=== PATIENT | male | born 1960 | race African-American/Black ===

== ENCOUNTER 2019-04-13 22:10 | Emergency (ER) | payer OTHER ==
[~2019-04-13] VITALS: Ht 165.1 cm; Wt 76.2 kg
[~2019-04-13 22:10] MED LIST: ADULT LOW DOSE81 MG PO; CARAFATE 1 GM TA1 G1 PO; CEFTIN500 MG PO; MEDROL DOSPAK21 TA1 PO; NORCO 5-325 TA1 EACH PO; NORCO 7.5-3251 EACH PO; OMEPRAZOLE PO; PRILOSEC40 MG PO; PROTONIX40 M2 PO; PROTONIX40 MG PO; ZANTAC 150MG T150 MG PO
[2019-04-13 22:33] VITALS: BP 159/84
[2019-04-13 23:05] LABS: URINE BILIRUBIN NEGATIVE (Negative); URINE BLOOD 3+ (Negative); URINE CLARITY CLOUDY; URINE COLOR RED; URINE GLUCOSE-RANDOM* NEGATIVE (Negative); URINE KETONES NEGATIVE (Negative); URINE LEUKOCYTES-REFLEX TRACE (Negative); URINE NITRITE-REFLEX NEGATIVE (Negative); URINE PROTEIN (DIPSTICK) 3+ (Negative); URINE SPECIFIC GRAVITY 1.025 (1.005-1.035); URINE UROBILINOGEN 0.2 E.U./dl (0.2-1.0)
[2019-04-13 23:26] LABS: SQUAMOUS 0-3 Few /LPF (0-3); URINE RBC >20 Many /HPF (0-2); URINE WBC-REFLEX 0-5 Rare /HPF (0-5)
[2019-04-13 23:27] LABS: BACTERIA-REFLEX None Seen /HPF (None Seen); CASTS None Seen /LPF (None Seen); CRYSTALS None Seen /LPF (None Seen)
== END 2019-04-14 01:40 | disposition home or self-care (01) ==
LOC: ER 22:10
PROVIDERS: Physician Assistant
DX: R31.0 Gross hematuria (principal); F17.210 Nicotine dependence, cigarettes, uncomplicated; Z86.73 Personal history of transient ischemic attack (TIA), and cerebral infarction without residual deficits

== ENCOUNTER 2019-06-14 13:24 | Inpatient (IN) | payer OTHER ==
[~2019-06-14] VITALS: Ht 165.1 cm; Wt 80.2 kg
--- NOTE | ~2019-06-14 | HC ---
[facility] [address] [place] [address] CONSULTATION Name: MIHAELA MORELAND JR Room #: 216-P ADM IN M.R.#: [id number] Admission: 06/14/19 Attend Phys: Sylvester Arevalo MD Discharge: Date of : 60 Report #: [id number] THIS REPORT FOR: cc: Leo Gill,Dung Gilman MD ~ CC: Sylvester Gill DATE OF SERVICE: 06/15/2019 HISTORY OF PRESENT ILLNESS: The patient is a 59-year-old -Tog[place] male who was admitted on 06/14/2019 with left-sided weakness, abnormal gait, slurred speech for 1 day. He has a prior history of remote TIA. He underwent an MRI scan, which showed an acute subacute right pontine infarct. He notes he has left-sided weakness, thinks it may be somewhat better although he does have some premorbid arthritis, which affects his movement of that hand. Denies any specific visual complaints. No focal numbness or tingling. We are seeing him in Rehabilitation Medicine consultation. PAST MEDICAL HISTORY: Includes a prior history of TIA. He has a history of prostate cancer with some urinary incontinence and he notes that there has been some metastasis to the bone. MEDICATIONS: Please see the full medication listing. ALLERGIES: SHELLFISH AND IODINE. SOCIAL HISTORY: Lives in a house with his fiancee. He stays on one floor, on the ground floor. 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 He did not utilize gait aids premorbidly. REVIEW OF SYSTEMS: No focal complaints of chest pain, shortness of breath or abdominal discomfort. PHYSICAL EXAMINATION: GENERAL: He is a pleasant, 59-year-old -[place]og[place] male, in no obvious distress. VITAL SIGNS: Last recorded temperature 97.9, pulse 73, respirations 18, blood pressure 174/82. NEUROLOGIC: The patient is alert. Follows basic commands. He is pleasant, oriented. Appears to be a good historian. Facies appeared symmetric. No visual field neglect to confrontation. He moves both upper and lower extremities. Appears to have some mild decreased coordination of the left upper extremity compared to the right. [id number]-[id number] is slightly decreased. Left lower extremity strength maybe slightly decreased compared to the right. [address] [address] CONSULTATION Name: MIHAELA MORELAND Room #: 216-P [facility] IN M.R.#: [id number] Admission: 06/14/19 Attend Phys: Sylvester Arevalo MD Discharge: Date of : 60 Report #: [id number] were intact sensation. No obvious decreased sensation to simultaneous stimulation both upper and lower extremities as well as the left face. ASSESSMENT: A 59-year-old -Tog[place] male with the following problem list: 1. Acute subacute right pontine infarct. 2. Left-sided weakness with noted abnormal gait and slurred speech. 3. Functional mobility and activities of daily living deficits, which are being further assessed. 4. Prior history of prostate cancer with urinary incontinence and apparent bony metastases per history. PLAN: We will need to see how he does in therapies. If he has the functional deficits, he may warrant a short acute in-hospital inpatient rehabilitation stay. At this point, we will need to follow along with you. He maybe too high level as well as he has had. Thank you for asking us to assist in this patient's care. By: [id number] Dung Morgan MD /PMT
--- NOTE | ~2019-06-14 | HC ---
[facility] [address] [place] [address] CONSULTATION Name: MIHAELA MORELAND JR Room #: 216-P ADM IN M.R.#: [id number] Admission: 06/14/19 Attend Phys: Sylvester Arevalo MD Discharge: Date of : 60 Report #: [id number] THIS REPORT FOR: cc: Leo Gill,Roberth Morris MD ~ CC: Sylvester Gill DATE OF SERVICE: 06/15/2019 HISTORY OF PRESENT ILLNESS: This is a 59-year-old male patient who noticed weakness a couple of days ago. The exact duration is not clear. He indicated that the weakness is stable, improved to some extent, but he is still weak on the left side. It came spontaneously without any trauma. He does not know any aggravating or relieving factors for that. REVIEW OF SYSTEMS: He indicates he had a TIA several years ago. He was in [facility]. I do not have any records from there. I do not know what workup was done and that was found. The patient is on aspirin, but the patient also continues to smoke. He denies the use of any drugs. He does have some heart issues. His biggest medical problem is metastatic prostatic carcinoma since 2016. A 14-point review of system was carried out. It was mostly unremarkable. He denies any history of any visual, ENT, cardiac, respiratory, GI, , musculoskeletal, constitutional, dermatological, hematological, psychiatric, throat or allergic symptom associated with present symptomatology. PAST MEDICAL HISTORY: Positive for TIA. FAMILY HISTORY: Positive for vascular disease. SOCIAL HISTORY: He continues to smoke, but indicates that he does not drink any alcohol. PHYSICAL EXAMINATION: Indicates he is alert, responsive, able to follow simple and complex command. Cranial nerve examination 2-12 looks intact. His speech, concentration, fund of knowledge and memory is also intact. He does appear to be weak on the left side. He can still move his extremities. He is weak on the left side. He does not do tczrbg-ne-bmft very well on the left side. He does have a position sense on both sides. His tone is symmetrical. His reflexes are difficult to elicit because he does not relax. I could not look at the patient's fundus. CARDIAC: Appear unremarkable. LUNGS: No respiratory difficulty was noticed. VITAL SIGNS: His blood pressure is 157/89, respirations 18, pulse is 58, temperature is 98.6. [facility] [address] [place] [address] CONSULTATION Name: MIHAELA MORELAND Room #: [facility] [address]#: [id number] Admission: 06/14/19 Attend Phys: Sylvester Arevalo MD Discharge: Date of : 60 Report #: [id number] LABORATORY DATA: His white count is low at 3.3. His imaging studies were reviewed and his CT and a carotid Doppler looks unremarkable. IMPRESSION: The finding is consistent with most likely a subcortical CVA. His MRI is scheduled and we will see what it shows. He is already on aspirin. If MRI demonstrates stroke, I will put him on a combination of aspirin and Plavix. He needs some further workup and I did order an echocardiogram and the further workup for the patient's stroke. The workup does include lipid profile. He really needs to stop smoking and I discussed that with the patient. He also needs to take other measures to decrease his chances of having a stroke in futures and that was also discussed with the patient. His white count is low, but that is probably his baseline. Thank you very much for this referral and if you have any question, please feel free to contact me. By: [phone] Roberth Rivas MD /nt
[2019-06-14] MEDS ORDERED: OXYCODONE HCL10 MG PO (14:04)
[2019-06-14] MEDS ORDERED: DULOXETINE HCL60 MG PO (14:05)
[2019-06-14] MEDS ORDERED: NEURONTIN 300300 M1 PO (14:05)
[2019-06-14 14:06] LABS: HEMATOCRIT 37.3 % (42.0-52.0); HEMOGLOBIN 11.9 gm/dL (14.0-18.0); MCHC 31.9 g/dL (28.0-37.0); MCV 87.9 fL (80.0-100.0); PLATELET COUNT 214 thou/uL (150-400); RBC 4.24 mil/uL (4.50-6.00); RDW 15.2 % (10.5-14.5); WBC 2.7 thou/uL (4.0-11.0)
[2019-06-14] MEDS ORDERED: ATORVASTATIN CA80 MG PO (14:06)
[2019-06-14 14:10] LABS: ANION GAP 7 mmol/L (7-16); BUN 15 mg/dL (7-18); CALCIUM 9.3 mg/dL (8.5-10.1); CHLORIDE 104 mmol/L (98-107); CO2 29 mmol/L (21-32); CREATININE 1.1 mg/dL (0.7-1.3); GLUCOSE 144 mg/dL (74-106); POTASSIUM 3.7 mmol/L (3.5-5.1); SODIUM 140 mmol/L (136-145)
[2019-06-14 14:16] LABS: ALBUMIN 3.8 g/dL (3.4-5.0); APTT 27.3 Seconds (24.5-32.8); DIRECT BILIRUBIN < 0.1 mg/dL (<0.1-0.2); PROTIME 10.6 Seconds (9.3-11.4); SGOT 37 U/L (15-37); SGPT 47 U/L (30-65); TOTAL BILIRUBIN 0.4 mg/dL (<0.1-1.0); TOTAL PROTEIN 7.2 g/dL (6.4-8.2)
[2019-06-14 14:30] LABS: ABSOLUTE NEUTROPHILS 1.4 thou/uL (1.4-8.2); ANISOCYTOSIS 1+; OVALOCYTES FEW
[2019-06-14 15:03] LABS: URINE BILIRUBIN NEGATIVE (Negative); URINE BLOOD NEGATIVE (Negative); URINE CLARITY CLEAR; URINE COLOR YELLOW; URINE GLUCOSE-RANDOM* NEGATIVE (Negative); URINE KETONES NEGATIVE (Negative); URINE LEUKOCYTES-REFLEX NEGATIVE (Negative); URINE NITRITE-REFLEX NEGATIVE (Negative); URINE PROTEIN (DIPSTICK) NEGATIVE (Negative); URINE UROBILINOGEN 0.2 E.U./dl (0.2-1.0)
[2019-06-14 16:13] VITALS: BP 176/93
[2019-06-14 17:00] VITALS: BP 189/91
--- NOTE | 2019-06-14 17:47 | NUR ---
ASSUMED CARE OF PT AT APPROX 1515 FROM ER D/T STROKE-LIKE SYMPTOMS, LEFT SIDED WEAKNESS. PT A&OX4. X1 ASSIST WITH GAIT BELT. ON RA. ADMISSION ORDER AND INSTRUCTIONS COMPLETE. MRI SCREEN TOOL COMPLETE AND CONSENTS SIGNED. WILL CONTINUE TO MONITOR AND FOLLOW POC.
[2019-06-14 19:35] VITALS: BP 150/84
[2019-06-15 00:11] VITALS: BP 168/89
[2019-06-15 03:18] VITALS: BP 157/89
--- NOTE | 2019-06-15 04:09 | NUR ---
NO OVERNOGHT EVENTS. PT. DENIES PAIN. NIH SCORE 0-1. SLEPT WELL THROUGH MOST OF SHIFT. ASSESSMENTS AND VITAL SIGNS CHARTED. NEURO TO SEE PATIENT THIS MORNING AND GET MRI OF HEAD DONE TO DETERMINE MORE OF THE POC. WILL CONTINUE TO MONITOR.
[2019-06-15 04:27] LABS: CALCIUM 8.8 mg/dL (8.5-10.1); CREATININE 0.9 mg/dL (0.7-1.3); POTASSIUM 3.9 mmol/L (3.5-5.1)
[2019-06-15 04:28] LABS: HEMOGLOBIN 10.9 gm/dL (14.0-18.0); MCH 28.1 pg (26.0-34.0); RBC 3.86 mil/uL (4.50-6.00); RDW 14.8 % (10.5-14.5); WBC 3.3 thou/uL (4.0-11.0)
[2019-06-15 07:30] VITALS: BP 171/95
[2019-06-15 08:33] LABS: CHOLESTEROL 133 mg/dL (<200); HDL CHOLESTEROL 47 mg/dL (>40); LDL CHOLESTEROL 72 mg/dL (<100); TC:HDL 2.8 Ratio (Not establshd); TRIGLYCERIDE 74 mg/dL (<150); VLDL 15 mg/dL (<40)
[2019-06-15 08:57] LABS: TSH 0.616 uIU/mL (0.358-3.740)
--- NOTE | 2019-06-15 08:58 | EKG ---
[facility] [place] [address] ELECTROCARDIOGRAM REPORT Name: MIHAELA MORELAND Room #: 216-P ADM IN M.R.#: [id number] Admission: 06/14/19 Attend Phys: Sylvester Arevalo MD Discharge: Date of : 60 Report #: [id number] THIS REPORT FOR: cc: Leo Gill James A. DO Couchonnal, Luis F. MD ~ THIS REPORT FOR: //name// [facility] ED Test Date: 2019-06-14 Test Time: 13:41:05 Pat Name: MIHAELA MORELAND Department: Room: 216 Gender: M Consulting Practice Manager: ISABELLA : 1960 Requested By: Kayleen Graves Order Number: [id number] MD: Reuben Watson Measurements Intervals Gays Rate: 60 P: 8 HI: 186 QRS: -17 QRSD: 83 T: 28 QT: 400 QTc: 400 Interpretive Statements Sinus rhythm Borderline left axis deviation No previous ECG available for comparison Electronically Signed On 06-15-2019 8:56:58 CDT by Reuben Watson [email or web address] <ELECTRONICALLY SIGNED> By: Reuben Watson MD 06/15/19 0856 [id number] 1341 Reuben Watson MD /EPI
[2019-06-15 11:00] VITALS: BP 174/82
--- NOTE | 2019-06-15 13:36 | 2DMMODE ---
[facility] [address] [place] [address] 2 D/M-MODE ECHOCARDIOGRAM Name: MIHAELA MORELAND Room #: 216-P ADM IN M.R.#: [id number] Admission: 06/14/19 Attend Phys: Sylvester Arevalo MD Discharge: Date of : 60 Report #: [id number] THIS REPORT FOR: cc: Leo Gill James A. DO Lammoglia, Francisco J. MD ~ APPROVED REPORT Study performed: 06/15/2019 11:55:58 EXAM: Comprehensive 2D, Doppler, and color-flow Echocardiogram Patient Location: Echo lab Room #: 216 Status: routine BSA: 1.87 HR: 66 bpm BP: 174/82 mmHg Indications CVA. Echo Enhancing Agent Indication: Rule out Shunt Agent(s) / Amount(s) Used: Agitated Saline 6 cc 2D Dimensions RVDd: 34.00 mm IVSd: 12.00 (7-11mm) LVOT Diam: 20.00 (18-24mm) LVDd: 48.00 mm PWd: 11.00 (7-11mm) LVDs: 30.00 (25-40mm) Aortic Root: 34.00 mm Volumes Left Atrial Volume (Systole) Single Plane 4CH: 66.31 mL Single Plane 2CH: 59.56 mL LA ESV Index: 36.00 mL/m2 Aortic Valve AoV Peak Lucio.: 1.78 m/s AO Peak Gr.: 12.74 mmHg LVOT Max P.18 mmHg LVOT Max V: 1.34 m/s SUSANA Vmax: 2.32 cm2 [facility] [address] [email or web address] [address] 2 D/M-MODE ECHOCARDIOGRAM Name: MIHAELA MORELAND Room #: 216-P [facility] IN ..#: [id number] Admission: 06/14/19 Attend Phys: Sylvester Arevalo MD Discharge: Date of : 60 Report #: [id number] Mitral Valve E/A Ratio: 0.8 MV Decel. Time: 307.35 ms MV E Max Lucio.: 0.68 m/s MV A Lucio.: 0.82 m/s MV PHT: 89.13 ms IVRT: 101.50 ms Pulmonary Valve PV Peak Lucio.: 2.09 m/s PV Peak Gr.: 17.41 mmHg Pulmonary Vein P Vein S: 0.80 m/s P Vein D: 0.56 m/s P Vein S/D Ratio: 1.43 Tricuspid Valve RAP Estimate: 5.00 mmHg Left Ventricle The left ventricle is normal size. There is normal LV segmental wall motion. Mild concentric left ventricular hypertrophy. Left ventricular systolic function is normal. LVEF is 60-65%. Mild diastolic dysfunction is present (impaired relaxation pattern). Right Ventricle The right ventricle is normal size. The right ventricular systolic function is normal. Atria Left atrium is mildly dilated. No shunting noted with contrast bubble injection. The right atrium size is normal. Port noted in right atrium for chemo. Aortic Valve The aortic valve is normal in structure. No aortic regurgitation is present. There is no aortic valvular stenosis. Mitral Valve The mitral valve is normal in structure. Trace mitral regurgitation. Tricuspid Valve The tricuspid valve is normal in structure. There is no tricuspid valve regurgitation noted. Unable to assess PA pressure. [facility] [place] [address] 2 D/M-MODE ECHOCARDIOGRAM Name: MERLYMIHAELA TYLER Room #: 216-P ADM IN M.R.#: [id number] Admission: 06/14/19 Attend Phys: Sylvester Arevalo MD Discharge: Date of : 60 Report #: [id number] Pulmonic Valve The pulmonary valve is normal in structure. Trace pulmonic regurgitation. Pericardium No pericardial effusion. <Conclusion> The left ventricle is normal size. LVEF is 60-65%. Left atrium is mildly dilated. No shunting noted with contrast bubble injection. The aortic valve is normal in structure. The mitral valve is normal in structure. Trace mitral regurgitation. The tricuspid valve is normal in structure. There is no tricuspid valve regurgitation noted. Unable to assess PA pressure. The pulmonary valve is normal in structure. Trace pulmonic regurgitation. No pericardial effusion. <ELECTRONICALLY SIGNED> By: Johnson Douglas MD 06/15/19 1335 1335 1335 Johnson Douglas MD /INF
[2019-06-15 17:18] VITALS: BP 140/64
--- NOTE | 2019-06-15 18:01 | NUR ---
ASSUMED CARE OF PT AT SHIFT CHANGE. ASSESSMENTS CHARTED. MEDS GIVEN PER JUN. PT A&OX4. NO C/O PAIN. PT WORKED WITH OT/PT, MORE STEADY THEN YESTERDAY. SBA, WITH BED ALARM ON. WILL CONTINUE TO MONITOR AND FOLLOW POC.
[2019-06-15 19:40] VITALS: BP 162/83
[2019-06-16 04:40] VITALS: BP 134/84
--- NOTE | 2019-06-16 04:44 | NUR ---
ASSUMED PT CARE AT 1900. PT IS ALERT AND ORIENTED WITH NO SIGN OF DISTRESS NOTED. PT VERBALIZES A HEADACHE, TYLENOL ADMINISTERED. PT IS STEADY WHEN AMBULATING. VITAL SIGNS STABLE. SCHEDULED MED ADMINISTERED TO PT. TOLERATED PO INTAKE. CONTINUE TO MONITOR PT. DENIES ANY FURTHER NEEDS AT THIS TIME.
[2019-06-16 08:00] VITALS: BP 152/79
--- NOTE | 2019-06-16 08:30 | NUR ---
PATIENT SEEN BY DR. MEJIA FOR REHAB CONSULT AND FOR THERAPY EVALUATIONS ON 06/15/19. PATIENT IS TOO HIGH FUNCTIONING FOR ACUTE REHAB AND CAN LIKELY RETURN HOME WITH OUT PATIENT THERAPY SERVICES. AUDIT CONSULTANT INFORMED. THANK YOU FOR THIS REFERRAL.
[2019-06-16] MEDS ORDERED: ASPIRIN325 PO (10:15)
[2019-06-16] MEDS ORDERED: LISINOPRIL10 MG PO (10:16)
[2019-06-16 11:05] VITALS: BP 152/79
--- NOTE | 2019-06-16 12:56 | NUR ---
met with patient who admits with stroke. patient resides in home with . All needs on one level. patient reports uses a cane for ambulation. patient evaled by acute rehab but too high level. Therapy recommends outpatient tx. Script for patient for outpatient tx. Patient reports works here. Discussed options for outpatient tx. He wants to discuss with . He is also rec cancer tx and recommendation of HBO tx at . He may want outpatient tx at . Patient ambulating in haro independently with his cane. Plan home outpatient tx. PCP is Dr Garcia
--- NOTE | 2019-06-16 15:18 | NUR ---
ASSUMED CARE PT SHIFT CHANGE. ASSESSMENT CHARTED. MEDS GIVEN PER JUN. PT ALERT AND ORIENTED. VSS. C/O NERVE PAIN HAND- GABAPENTIN GIVEN. PT UP WITH CANE TOLERATING WELL. O2 SATS WNL ON ROOM AIR. DC ORDERS ACKNOWLEDGED AND IMPLEMENTED. DC PAPERWORK DISCUSSED WITH PT. COMMUNICATES UNDERSTANDING. IV REMOVED. TELE REMOVED. PT LEFT UNIT WITH ALL BELONGINGS AT APPROX 1200.
[2019-06-16 19:08] LABS: SYPHILIS AB Non Reactive (Non Reactive)
== END 2019-06-16 11:58 | disposition home or self-care (01) | DRG 65 ==
LOC: ER 13:24 → EROBS 16:00 → 2N 16:00
PROVIDERS: Emergency Medicine; Psychiatry & Neurology Neuromuscular Medicine; ADMIT Hospitalist
DX: I63.9 Cerebral infarction, unspecified (principal); G81.94 Hemiplegia, unspecified affecting left nondominant side; I10 Essential (primary) hypertension; E78.5 Hyperlipidemia, unspecified; F17.210 Nicotine dependence, cigarettes, uncomplicated; Z90.89 Acquired absence of other organs; Z79.82 Long term (current) use of aspirin; Z79.891 Long term (current) use of opiate analgesic; Z79.899 Other long term (current) drug therapy; Z91.041 Radiographic dye allergy status; Z91.013 Allergy to seafood
CPT/HCPCS: 10081